=== PATIENT | female | born 1975 | race Caucasian/White ===

== ENCOUNTER 2017-10-13 07:45 | Emergency (ER) | payer SELFPAY ==
--- NOTE | 2017-10-13 08:08 | EDPHY ---
HPI/HX/ROS/PE/MDM Narrative: CHIEF COMPLAINT: Pelvic Pain HISTORY OF PRESENT ILLNESS: This patient is a 42 year old female complaining of pelvic pain. She woke three days ago with a soreness in her pelvic region. Yesterday, the discomfort was more severe and she took ibuprofen for relief. Today, her pain increased more. She took ibuprofen at 7am with no relief. She describes her discomfort as a "dull, persistent ache". The patient notes she has had a Mirena IUD in place for nine years, four years past the recommended duration. She was evaluated one year ago at [facility] and had a screening for uterine cancer, which was negative. She was unable to get the IUD replaced as she lost her insurance coverage shortly after her evaluation. Additionally, the patient notes she has always had regular periods with her IUD, but for the past month, she has had intermittent bleeding with "really significant" clots over the past week. She endorses diarrhea. No fever, chills, chest pain, shortness of breath, palpitations, vomiting, urinary complaints, headache, lightheadedness. REVIEW OF SYSTEMS: Aside from elements discussed in the HPI, a comprehensive 10-point review of systems was reviewed and is negative. PAST MEDICAL HISTORY: Hypertension. Mirena IUD in place. Cesarian section. Appendectomy. SOCIAL HISTORY: Lives in [place]. Employed. Occasional tobacco use. VITAL SIGNS: Reviewed by me GENERAL: Tearful, well-developed, well-nourished, resting comfortably in no respiratory distress. HEENT: Atraumatic. Eyes: No icterus, no injection. Mouth: moist mucous membranes. No erythema or lesions. Neck: supple with no adenopathy. LUNGS: Clear to auscultation bilaterally, no wheezes, rhonchi or rales. CARDIAC: Irregular rate and rhythm, occasional pauses. No rubs, murmurs or gallops. ABDOMEN:Suprapubic and right greater than left lower quadrant tenderness. Soft, nondistended, bowel sounds normal. No guarding or rebound. BACK: Left flank pain. EXTREMITIES: No trauma. No edema. Range of motion is normal throughout. NEURO: Alert and oriented, grossly nonfocal. SKIN: Warm and dry, no rash. PSYCHIATRIC: Normal mentation, no agitation. Portions of this note were transcribed by a durable medical equipment repairer. I personally performed a history, physical exam, medical decision making, and confirmed accuracy of information the transcribed note. ED Course: 42 y/o female presents with pelvic pain and abnormal uterine bleeding. She has an IUD in place which is been present for 9 years. Exam reveals suprapubic tenderness and mild right greater than left lower abdominal tenderness. Plan for US pelvis, labs including CMC, chemistries, UA. Plan to administer 75mcg IV Fentanyl, 4mg IV Zofran, and 1L IV NS for symptom relief. 10:[address] Nails, radiologist. US pelvis shows malpositioned low- lying IUD. There is also a heterogeneous endometrial mass in the fundus region measuring 3.7 x 3.6 x 3.4 cm which may represent endometrial polypoid lesion, submucosal leiomyoma, or heterogeneous blood products. Recommend endometrial biopsy. I offered the patient removal of her IUD here in the emergency department. However, she reports [facility]. She does understand that the low-lying IUD no longer is providing adequate control. 10:33 She requests a prescription for pain control until that time. Administered 15mg IV Toradol for pain relief. Plan to discharge home in good condition with prescription for indomethacin or ibuprofen. Follow up and return precautions discussed. She is comfortable with this plan. MDM: The differential diagnosis for the patient's abdominal pain and uterine bleeding was considered including but not limited to malposition IUD, related complications, PID, ovarian cyst, uterine fibroid, infection. - Data Points Imaging Results: Impression: 1. Low-lying IUD. 2. Heterogeneous endometrial mass in the fundus region measuring 3.7 x 3.6 x 3.4 cm which may represent endometrial polypoid lesion, submucosal leiomyoma, or heterogeneous blood products. Recommend endometrial biopsy. 3. Nonvisualization of the right ovary. 4. Normal left ovary without torsion or significant free fluid in the pelvis. Findings and recommendations discussed with Emergency Department physician, Shawna Rodriguez MD, at 10: 27 a.m. on 10/13/2017. Final report concurs with initial preliminary interpretation. Dictated By: [employer] Imaging: Discussed imaging studies w/ call person Radiologist Laboratory Results: Laboratory Results 10/13/17 08:20 10/13/17 08:20 Medications Given: Discontinued Medications Fentanyl (Sublimaze) 75 mcg IVP EDNOW ONE Stop: 10/13/17 08:23 Last Admin: 10/13/17 08:33 Dose: 100 mcg Hydromorphone HCl (Dilaudid) 1 mg IVP EDNOW ONE Stop: 10/13/17 08:20 Last Admin: 10/13/17 10:57 Dose: Not Given Sodium Chloride (Ns) 1,000 mls @ 0 mls/hr IV ONCE ONE; Wide Open PRN Reason: Protocol Stop: 10/13/17 08:19 Last Admin: 10/13/17 09:12 Dose: Not Given Sodium Chloride (Ns) 1,000 mls @ 0 mls/hr IV ONCE ONE; Wide Open PRN Reason: Protocol Stop: 10/13/17 08:20 Last Admin: 10/13/17 08:30 Dose: 1,000 mls Ketorolac Tromethamine (Toradol) 15 mg IVP EDNOW ONE Stop: 10/13/17 10:39 Last Admin: 10/13/17 10:52 Dose: 15 mg Ondansetron HCl (Zofran) 4 mg IVP EDNOW ONE Stop: 10/13/17 08:19 Last Admin: 10/13/17 08:42 Dose: 4 mg General Time Seen by Provider: 10/13/17 07:55 Initial Vital Signs: Initial Vital Signs Temperature (C) 36.6 C 10/13/17 07:48 Heart Rate 81 10/13/17 07:48 Respiratory Rate 17 10/13/17 07:48 Blood Pressure 158/115 H 10/13/17 07:48 O2 Sat (%) 93 10/13/17 07:48 O2 Delivery Mode Room Air Allergies/Adverse Reactions: No Known Allergies Allergy (Unverified 10/13/17 07:48) Home Medications: Medication Instructions Recorded Ibuprofen [Motrin (*)] 600 mg PO TID #30 tab 10/13/17 Indomethacin [Indocin 25 mg (*)] 25 mg PO TID #30 cap 10/13/17 Lisinopril 10/13/17 Departure - Departure Disposition: Home, Routine, Self-Care Clinical Impression: Pelvic pain in female, Dysfunctional uterine bleeding Malpositioned IUD Qualifiers: Encounter type: initial encounter Qualified Code(s): T83.32XA - Displacement of intrauterine contraceptive device, initial encounter Condition: Good Instructions: Dysfunctional Uterine Bleeding (ED), Pelvic Pain in Women (ED) Additional Instructions: 1. Follow up with an PATCHER as soon as possible for IUD removal and re- evaluation. You may also need an endometrial biopsy. 2. Take ibuprofen or indomethacin as prescribed as needed for pain. Only take one of these medications. You may fill whichever prescription you choose, but do not take both. 3. Return to the emergency department for fever, heavy bleeding, increased pain , or other worsening of condition. Referrals: Thierry Nayak MD [Medical Doctor] - As per Instructions Stand Alone Forms: Work Excuse Prescriptions: Ibuprofen [Motrin (*)] 600 mg PO TID #30 tab Indomethacin [Indocin 25 mg (*)] 25 mg PO TID #30 cap Report Scribed for: Shawna Rodriguez Report Scribed by: Vangie La Date of Report: 10/13/17 Time of Report: 09:39
[2017-10-13] MEDS ORDERED: NS 1,000 ML IV ONE ×2 (08:18→08:19)
[2017-10-13] MEDS ORDERED: ONDANSETRON 4 MG/2 ML VIAL IVP ONE (08:18)
[2017-10-13] MEDS ORDERED: HYDROmorphONE/DILAUDID 2 MG/ML INJ IVP ONE (08:19)
[2017-10-13] MEDS ORDERED: fentaNYL 100 MCG/2 ML INJ IVP ONE (08:22)
[2017-10-13 08:33] LABS: PLATELET COUNT 314 10^3/uL (150-400)
[2017-10-13] MEDS ORDERED: KETOROLAC 30 MG/1 ML SDV IVP ONE (10:38)
[2017-10-13 11:08] VITALS: BP 124/68
== END 2017-10-13 11:08 | disposition home or self-care (01) ==
DX: T83.32XA Displacement of intrauterine contraceptive device, initial encounter (principal); N93.8 Other specified abnormal uterine and vaginal bleeding; I10 Essential (primary) hypertension; E86.9 Volume depletion, unspecified; Y73.2 Prosthetic and other implants, materials and accessory gastroenterology and urology devices associated with adverse incidents
CPT/HCPCS: 96374; J1885; J2405; J3010